=== PATIENT | female | born 2000 | race Caucasian/White ===

== ENCOUNTER 2023-02-10 11:00 | Inpatient (IN) ==
[2023-02-10] MEDS ORDERED: LACTATED RINGER'S 1,000 ML IV PRN ×2 (12:32→13:58)
[2023-02-10] MEDS ORDERED: METHADONE ORAL SOLN 2 MG/ML PO ONE (13:30)
[2023-02-10 13:37] LABS: Amphetamines+Metham, Urine Neg (Neg); Barbiturates, Urine Neg (Neg); Benzodiazepine, Urine Neg (Neg); Cocaine, Urine Neg (Neg); MDMA (Ecstacy), Urine Neg (Neg); Methadone, Urine Pos (Neg); Opiate, Urine Neg (Neg); Phencyclidine, Urine Neg (Neg)
[2023-02-10] MEDS ORDERED: OXYTOCIN 30 UNITS/500 ML BAG IV PRN ×3 (13:58→22:35)
[2023-02-10] MEDS ORDERED: LIDOCAINE 1% LOCAL 20 ML VIAL INFIL PRN (13:58)
[2023-02-10] MEDS ORDERED: VANCOMYCIN HCL 1,000 MG in SODIUM CHLORIDE 0.9% 250 ML IV STA (14:01)
[2023-02-10 14:52] LABS: Hematocrit (blood only) 33.2 % (37.0-47.0); Hemoglobin 10.5 g/dl (12.0-16.0); Mean Corpuscular Hemoglobin 25.7 pg (25.0-34.0); Mean Corpuscular Hgb Conc 31.6 g/dL (32.0-36.0); Mean Corpuscular Volume 81.2 fL (80.0-100.0); Mean Platelet Volume 11.1 fL (9.4-12.4); Platelet Count 283 K/uL (130-400); RDW Coefficient of Variation 25.8 % (11.5-14.5); RDW Standard Deviation 72.8 fL (36.4-46.3); Red Blood Count 4.09 M/uL (4.20-5.40)
--- NOTE | 2023-02-10 16:47 | History & Physical Report ---
Date of Service February 10, 2023 Assessment & Plan (1) premature rupture of membranes (PPROM) delivered, current hospi talization: Plan: Pt is 36+ weeks s/p hx of drug use on Methadone Present to L&D for Methadone this Am- New to area Reviewed chart and spoke to hospital for records transfer + ROM, meconium Bedside sono: Vt 3cm on exam A/P Admit GBS prophylaxis Anticipate VD Admission and Anticipated Discharge Date Admission Date: February 10, 2023 History of Present Illness Primary Care Provider: NO PCP Allergies Allergy/AdvReac Type Severity Reaction Status Date / Time cephalexin [From Keflex] Allergy Swelling Verified 02/09/23 19:25 of Lip/Tongue/Throat influenza virus vaccine ts Allergy Rash Verified 02/09/23 19:56 [id number] (36 mos,up) [From Fluarix] Penicillins Allergy Swelling Verified 02/09/23 19:25 of Lip/Tongue/Throat Home Medications Medication Instructions Recorded Confirmed Type methadone 120 mg PO DAILY 02/09/23 02/10/23 History prenat.vits,vipin,[id number] 1 tab PO DAILY 02/09/23 02/10/23 History Patient History Medical History (Updated 02/10/23 @ 16:43 by Miller Meeks MD) Anemia Cellulitis history of lower extremities Chronic hepatitis C Hx of substance abuse Social History Smoking Status: Former smoker Smoking End Date: 11/29/22; Hx Alcohol Use: No Hx Substance Use: Yes Last Used Substance Other:: 12/31/22 Substance Use Type Other:: "fentanyl and tranquilizers" started using 6 years ago. On methadone December Preferred Language: [place] Assistant Sales Director Required: No Beliefs That Will Affect Care: None marital status: Single Current Living Situation: Family and Significant Other Current Living Situation Comment: lives with fob and fob's father Assistive Devices: None Results & Data Vital Signs (Past 12 Hours) Vital Signs Temp Pulse Resp BP Pulse Ox 02/10/23 12:44 36.9 C 12 02/10/23 16:37 98 02/10/23 16:37 107 H 02/10/23 16:32 97 02/10/23 16:32 113 H 02/10/23 16:27 98 02/10/23 16:27 83 02/10/23 16:22 98 02/10/23 16:22 100 H 02/10/23 16:17 97 02/10/23 16:17 94 H 02/10/23 16:12 97 02/10/23 16:12 92 H 02/10/23 16:07 97 02/10/23 16:07 99 H 02/10/23 16:02 97 02/10/23 16:02 111 H 02/10/23 15:57 99 02/10/23 15:57 92 H 02/10/23 15:52 98 02/10/23 15:52 102 H 02/10/23 15:47 97 02/10/23 15:47 92 H 02/10/23 15:42 97 02/10/23 15:42 98 H 02/10/23 15:37 96 02/10/23 15:37 91 H 02/10/23 15:32 98 02/10/23 15:32 102 H 02/10/23 15:27 98 02/10/23 15:27 105 H 02/10/23 15:22 98 02/10/23 15:22 100 H 02/10/23 15:17 96 02/10/23 15:17 96 H 02/10/23 15:12 96 02/10/23 15:12 108 H 02/10/23 15:07 97 02/10/23 15:07 108 H 02/10/23 15:02 97 02/10/23 15:02 109 H 02/10/23 14:57 97 02/10/23 14:57 110 H 02/10/23 14:52 98 02/10/23 14:52 120 H 02/10/23 14:47 98 02/10/23 14:47 106 H 02/10/23 14:42 98 02/10/23 14:42 117 H 02/10/23 14:37 98 02/10/23 14:37 123 H 02/10/23 14:38 117 H 02/10/23 14:38 137/90 02/10/23 14:32 97 02/10/23 14:32 108 H 02/10/23 14:27 97 02/10/23 14:27 109 H 02/10/23 14:22 98 02/10/23 14:22 127 H 02/10/23 14:17 98 02/10/23 14:17 98 H 02/10/23 14:12 99 02/10/23 14:12 108 H 02/10/23 14:07 99 02/10/23 14:07 110 H 02/10/23 13:59 100 02/10/23 13:59 108 H 02/10/23 13:54 100 02/10/23 13:54 91 H 02/10/23 13:49 100 02/10/23 13:49 82 02/10/23 13:44 99 02/10/23 13:44 93 H 02/10/23 13:39 100 02/10/23 13:39 85 02/10/23 13:34 100 02/10/23 13:34 92 H 02/10/23 13:29 98 02/10/23 13:29 95 H 02/10/23 13:24 100 02/10/23 13:24 83 02/10/23 13:19 99 02/10/23 13:19 86 02/10/23 13:14 100 02/10/23 13:14 81 02/10/23 13:09 98 02/10/23 13:09 82 02/10/23 13:04 99 02/10/23 13:04 104 H 02/10/23 12:59 99 02/10/23 12:59 96 H 02/10/23 12:54 100 02/10/23 12:54 95 H 02/10/23 12:49 100 02/10/23 12:49 106 H 02/10/23 12:44 100 02/10/23 12:44 98 H 02/10/23 12:39 100 02/10/23 12:39 104 H 02/10/23 12:27 96 H 02/10/23 12:27 124/88 02/10/23 12:17 87 02/10/23 12:17 112/70 02/10/23 12:07 88 02/10/23 12:07 113/68 02/10/23 11:57 99 H 02/10/23 11:57 119/80 02/10/23 11:47 100 H 02/10/23 11:47 119/79 02/10/23 11:37 107 H 02/10/23 11:37 116/77 02/10/23 11:27 117 H 02/10/23 11:27 121/75 02/10/23 11:16 36.9 C 99 H 18 136/93 Code Status & VTE Plan VTE Prophylaxis Plan VTE Prophylaxis will be ordered: No
[2023-02-10] MEDS ORDERED: ePHEDrine sulfate 50 MG/ML AMP ONE (17:43)
[2023-02-10] MEDS ORDERED: fentaNYL citrate PF 100 MCG/2 ML VIAL ONE (17:43)
[2023-02-10] MEDS ORDERED: SODIUM CHLORIDE 0.9% PF INJ 10 ML VIAL ONE (17:43)
[2023-02-10] MEDS ORDERED: LIDOCAINE 2%/EPINEPHRINE 1:200,000 20 ML PF ONE (17:43)
[2023-02-10] MEDS ORDERED: BUPIVACAINE 0.25% PF 30 ML VIAL ONE (17:43)
[2023-02-10] MEDS ORDERED: fentaNYL 2MCG/ML ROPIVACAINE 1.25MG/ML 100 ML BAG EPI ONE (17:44)
[2023-02-10] MEDS ORDERED: ePHEDrine sulfate 50 MG/ML AMP IV PRN (17:51)
[2023-02-10] MEDS ORDERED: diphenhydrAMINE 50 MG/ML VIAL IV PRN (17:51)
[2023-02-10] MEDS ORDERED: fentaNYL 2MCG/ML ROPIVACAINE 1.25MG/ML 100 ML BAG EPI PRN (17:51)
[2023-02-10] MEDS ORDERED: NALOXONE HCL 0.4 MG/1 ML VIAL/CARP IV PRN (17:51)
[2023-02-10] MEDS ORDERED: NALBUPHINE HCL INJ 10 MG/ML AMP IV PRN (17:51)
[2023-02-10] MEDS ORDERED: NALOXONE HCL 1 MG in SODIUM CHLORIDE 0.9% 1000ML 1,000 ML IV PRN (17:51)
[2023-02-10] MEDS ORDERED: ONDANSETRON INJ 2 MG/ML 2 ML VIAL IV PRN (17:51)
--- NOTE | 2023-02-10 17:54 | Anesthesiology Consultation ---
Date of Service February 10, 2023 Assessment & Plan Chart Review Chart Review: Acceptable Risk for Labor Epidural Consults Requested none ASA ASA3 Proposed Anesthesia Anesthesia Type: Labor Epidural Risk / Benefits Reviewed With: PT / POA / Parent / Guardian, Accepts Plan and Informed Consent Obtained History Height/Weight Height: 4 ft 11 in Weight: 49.033 kg Allergies Allergy/AdvReac Type Severity Reaction Status Date / Time cephalexin [From Keflex] Allergy Swelling Verified 02/09/23 19:25 of Lip/Tongue/Throat influenza virus vaccine ts Allergy Rash Verified 02/09/23 19:56 [id number] (36 mos,up) [From Fluarix] Penicillins Allergy Swelling Verified 02/09/23 19:25 of Lip/Tongue/Throat Medications Home Medications Medication Instructions Recorded Confirmed Last Taken methadone 120 mg PO DAILY 02/09/23 02/10/23 02/09/23 10:00 prenat.vits,vipin,[id number] 1 tab PO DAILY 02/09/23 02/10/23 02/09/23 Active Medications Generic Name Dose Route Start Last Admin Trade Name Freq PRN Reason Stop Dose Admin Lactated Ringer's 1,000 mls @ 125 mls/hr 02/10/23 12:32 02/10/23 17:22 Lr IV 03/12/23 12:31 999 mls/hr .Q8H PRN Infusion L&D Protocol Protocol Oxytocin 30 units in 500 mls @ 2 mls/hr 02/10/23 14:00 02/10/23 17:22 Pitocin IV 02/12/23 13:59 0 units/hr .Q24H PRN 0 mls/hr Labor Induction/Augmentation Titration Protocol 0.12 UNITS/HR Past Medical History Medical History Anemia Cellulitis history of lower extremities Chronic hepatitis C Hx of substance abuse Exercise / Class Metabolic Activity II 4-5 Yardwork/Stairs/Walk up hill Past Anesthesia History No Hx of Anesthesia Complications and No Family Hx of Anesthesia Complications History of PONV No Hx of PONV and No Hx of Motion Sickness Social History Smoking Status: Former smoker Smoking End Date: 11/29/22 Hx Alcohol Use: No Hx Substance Use: Yes substance use type: tranquilizers and IV drugs Substance Use Type Other:: "fentanyl and tranquilizers" started using 6 years ago. On methadone December Last Used Substance Other:: 12/31/22 Physical Exam Vital Signs Last Vital Signs Temp 98.4 F 02/10/23 12:44 Pulse 81 02/10/23 17:42 Resp 12 02/10/23 12:44 BP 117/68 02/10/23 17:20 Pulse Ox 100 02/10/23 17:42 ENMT Mouth: no dentition abnormality Thyromental Distance: > or= 3.5 Finger Breadths Mallampati Class: II Neck normal visual inspection Respiratory normal respiratory effort Auscultation: lungs clear to auscultation bilaterally Cardiovascular Rate/Rhythm: regular rate and regular rhythm Testing Laboratory Results 02/10/23 14:36
[2023-02-10] MEDS ORDERED: BETAMETH SOD PHOS/ACETATE IA 6 MG/ML IM STA (19:23)
[2023-02-10] MEDS ORDERED: NURSING L&D Epidural Breakthrough Pain Update ONE (21:59)
[2023-02-10] MEDS ORDERED: HYDROCORTISONE ACETATE 25 MG SUPP PR PRN (22:35)
[2023-02-10] MEDS ORDERED: miSOPROStoL 200 MCG TAB PR ONE (22:35)
[2023-02-10] MEDS ORDERED: ACETAMINOPHEN 325 MG TAB PO PRN (22:35)
[2023-02-10] MEDS ORDERED: DIPHTHERIA/TETANUS/PERTUSSIS 0.5mL SYR/VIAL (Age 7+yrs) IM ONE (22:35)
[2023-02-10] MEDS ORDERED: BENZOCAINE 20% AER SPR 82.5 GM CAN EXT PRN (22:35)
[2023-02-10] MEDS ORDERED: TERBUTALINE SULFATE 1 MG/ML VIAL ONE (23:10)
[2023-02-10] MEDS: IBUPROFEN 600 MG TAB PO PRN (23:14)
--- NOTE | 2023-02-10 23:19 | Delivery Summary ---
DATE OF SERVICE: 02/10/2023 DELIVERY NOTE: The patient delivered a live female in left occiput anterior presentation. Th ere was no nuchal cord. Infant was delivered and placed on mother's abdomen. Delayed cord clamp was performed. Cord blood and cord gases were obtained. Placenta was spontaneously delivered. Inspect ion of the placenta showed a meconium stained placenta. Placenta was sent to pathology for pathologi vipin analysis. Inspection of the perineum showed no laceration or tears. Estimated blood loss 450 mL . There was good hemostasis. The patient is stable in the recovery. Infant's weight and Apgars are i n the pediatric record. Job ID: [id number]
[2023-02-11] MEDS ORDERED: VANCOMYCIN HCL 1,000 MG in SODIUM CHLORIDE 0.9% 250 ML IV PRN (00:58)
[2023-02-11] MEDS: IBUPROFEN 600 MG TAB PO PRN ×4 (04:25→23:27)
[2023-02-11 06:45] LABS: Hematocrit (blood only) 31.7 % (37.0-47.0); Hemoglobin 10.1 g/dl (12.0-16.0); Mean Corpuscular Hemoglobin 25.4 pg (25.0-34.0); Mean Corpuscular Hgb Conc 31.9 g/dL (32.0-36.0); Mean Corpuscular Volume 79.8 fL (80.0-100.0); Mean Platelet Volume 11.8 fL (9.4-12.4); Platelet Count 301 K/uL (130-400); RDW Coefficient of Variation 25.2 % (11.5-14.5); RDW Standard Deviation 71.1 fL (36.4-46.3); Red Blood Count 3.97 M/uL (4.20-5.40)
[2023-02-11] MEDS: PRENATAL VITAMIN 1 TAB PO SCH (08:27)
[2023-02-11] MEDS: DOCUSATE SODIUM 100 MG CAP PO SCH ×2 (08:27→20:36)
--- NOTE | 2023-02-11 09:42 | Obstetrical Progress Note ---
Date of Service February 11, 2023 Assessment & Plan (1) Normal course: PPD #1 Pt on Methadone doing well otherwise CYS involved labile BP's- CBC and CPM ordered (2) High risk due to maternal drug abuse: Subjective Ambulation: ambulating normally Voiding: no voiding problems Passing Gas:: Yes Diet Tolerance:: regular diet Lochia:: Small Feeding Type:: breast feeding Review of Systems All systems reviewed & are unremarkable except as noted in HPI & below Physical Exam Constitutional WD/WN, vitals as above well developed and well nourished Eyes PERRL, conjunctivae normal, anicteric sclerae Neck trachea midline, no thyromegaly Respiratory normal respiratory effort, lungs clear to auscultation Auscultation: no crackles, no rales and no wheezes Cardiovascular RRR, no murmur, no edema Gastrointestinal (Abdomen) normal bowel sounds, soft, nontender, no hepatosplenomegaly Uterus is below umbilicus Musculoskeletal no cyanosis or clubbing, extremities motor strength 5/5 Skin no rashes, warm and dry Neurologic patellar DTR's 2+ bilat, sensation intact Psychiatric A+Ox3, euthymic affect Genitourinary normal external appearance Results & Data Vital Signs (Past 12 Hours) Vital Signs Temp Pulse Pulse Resp BP BP Pulse Ox 02/11/23 08:55 36.6 C 16 135/95 02/11/23 08:25 37 C 63 16 163/93 H 02/11/23 04:05 36.9 C 78 16 136/87 98 02/11/23 00:50 37.3 C 82 16 163/102 H 99 02/11/23 00:30 36.9 C 18 02/10/23 23:15 16 02/10/23 23:00 18 02/11/23 00:00 16 02/10/23 23:30 90 16 97 02/10/23 22:45 16 02/10/23 22:30 16 02/11/23 00:32 93 H 98 02/11/23 00:30 81 151/94 H 02/11/23 00:27 86 98 02/11/23 00:22 91 H 98 02/11/23 00:17 81 97 02/11/23 00:15 83 143/93 H 02/11/23 00:12 89 99 02/11/23 00:07 93 H 98 02/11/23 00:02 82 97 02/11/23 00:00 86 146/94 H 02/10/23 23:57 98 02/10/23 23:57 90 02/10/23 23:52 99 02/10/23 23:52 89 02/10/23 23:47 99 02/10/23 23:47 98 H 02/10/23 23:45 77 02/10/23 23:45 148/95 H 02/10/23 23:42 99 02/10/23 23:42 80 02/10/23 23:37 98 02/10/23 23:38 91 02/10/23 23:37 84 02/10/23 23:38 86 02/10/23 23:32 97 02/10/23 23:32 90 02/10/23 23:31 83 02/10/23 23:31 149/91 H 02/10/23 23:27 97 02/10/23 23:27 85 02/10/23 23:22 100 02/10/23 23:22 79 02/10/23 23:17 99 02/10/23 23:17 86 02/10/23 23:15 83 02/10/23 23:15 162/102 H 02/10/23 23:14 77 02/10/23 23:14 153/97 H 02/10/23 23:12 100 02/10/23 23:12 88 02/10/23 23:07 100 02/10/23 23:07 83 02/10/23 23:06 80 02/10/23 23:06 150/102 H 02/10/23 23:02 99 02/10/23 23:02 89 02/10/23 23:00 83 02/10/23 23:00 149/100 H 02/10/23 22:57 100 02/10/23 22:57 86 02/10/23 22:52 98 02/10/23 22:52 91 H 02/10/23 22:47 99 02/10/23 22:47 92 H 02/10/23 22:46 90 02/10/23 22:46 148/93 H 02/10/23 22:45 96 H 02/10/23 22:45 153/105 H 02/10/23 22:42 97 02/10/23 22:42 87 02/10/23 22:37 98 02/10/23 22:37 85 02/10/23 22:32 99 02/10/23 22:32 92 H 02/10/23 22:30 99 H 02/10/23 22:30 146/99 H 02/10/23 22:27 98 02/10/23 22:27 98 H 02/10/23 22:22 98 02/10/23 22:22 93 H 02/10/23 22:17 100 02/10/23 22:17 120 H 02/10/23 22:12 100 02/10/23 22:12 108 H 02/10/23 22:07 98 02/10/23 22:07 81 02/10/23 22:00 20 02/10/23 22:00 20 02/10/23 22:04 82 02/10/23 22:04 157/84 H 02/10/23 22:02 97 02/10/23 22:02 84 02/10/23 21:57 99 02/10/23 21:57 85 02/10/23 21:52 99 02/10/23 21:52 87 02/10/23 21:47 100 02/10/23 21:47 88 02/10/23 21:46 81 02/10/23 21:46 166/91 H 02/10/23 21:42 100 02/10/23 21:42 91 H 02/10/23 21:41 77 02/10/23 21:41 139/91 02/10/23 21:38 82 02/10/23 21:38 134/88 O2 Del Method 02/11/23 08:55 02/11/23 08:25 Room Air 02/11/23 04:05 Room Air 02/11/23 00:50 Room Air 02/11/23 00:30 02/10/23 23:15 02/10/23 23:00 02/11/23 00:00 02/10/23 23:30 02/10/23 22:45 02/10/23 22:30 02/11/23 00:32 02/11/23 00:30 02/11/23 00:27 02/11/23 00:22 02/11/23 00:17 02/11/23 00:15 02/11/23 00:12 02/11/23 00:07 02/11/23 00:02 02/11/23 00:00 02/10/23 23:57 02/10/23 23:57 02/10/23 23:52 02/10/23 23:52 02/10/23 23:47 02/10/23 23:47 02/10/23 23:45 02/10/23 23:45 02/10/23 23:42 02/10/23 23:42 02/10/23 23:37 02/10/23 23:38 02/10/23 23:37 02/10/23 23:38 02/10/23 23:32 02/10/23 23:32 02/10/23 23:31 02/10/23 23:31 02/10/23 23:27 02/10/23 23:27 02/10/23 23:22 02/10/23 23:22 02/10/23 23:17 02/10/23 23:17 02/10/23 23:15 02/10/23 23:15 02/10/23 23:14 02/10/23 23:14 02/10/23 23:12 02/10/23 23:12 02/10/23 23:07 02/10/23 23:07 02/10/23 23:06 02/10/23 23:06 02/10/23 23:02 02/10/23 23:02 02/10/23 23:00 02/10/23 23:00 02/10/23 22:57 02/10/23 22:57 02/10/23 22:52 02/10/23 22:52 02/10/23 22:47 02/10/23 22:47 02/10/23 22:46 02/10/23 22:46 02/10/23 22:45 02/10/23 22:45 02/10/23 22:42 02/10/23 22:42 02/10/23 22:37 02/10/23 22:37 02/10/23 22:32 02/10/23 22:32 02/10/23 22:30 02/10/23 22:30 02/10/23 22:27 02/10/23 22:27 02/10/23 22:22 02/10/23 22:22 02/10/23 22:17 02/10/23 22:17 02/10/23 22:12 02/10/23 22:12 02/10/23 22:07 02/10/23 22:07 02/10/23 22:00 02/10/23 22:00 02/10/23 22:04 02/10/23 22:04 02/10/23 22:02 02/10/23 22:02 02/10/23 21:57 02/10/23 21:57 02/10/23 21:52 02/10/23 21:52 02/10/23 21:47 02/10/23 21:47 02/10/23 21:46 02/10/23 21:46 02/10/23 21:42 02/10/23 21:42 02/10/23 21:41 02/10/23 21:41 02/10/23 21:38 02/10/23 21:38
[2023-02-11 09:53] LABS: Alanine Aminotransferase 13 U/L (7-52); Albumin Globulin Ratio 0.8 (0.9-2); Alkaline Phosphatase 152 U/L (34-104); Anion Gap 7 (3-11); Aspartate Aminotransferase 18 U/L (13-39); BUN Creatinine Ratio 11.1 (10-20); Bilirubin,Total 0.3 mg/dl (0.2-1.0); Blood Urea Nitrogen 6 mg/dl (6-23); Calcium 8.5 mg/dl (8.6-10.3); Carbon Dioxide 24 mmol/L (21-32); Chloride 104 mmol/L (98-107); Creatinine Clr Calc Pharmacy 109.6 ml/min; Est GFR (African American) > 150.0 ml/min; Est GFR (Non-African American) 132.1 ml/min; Globulin 3.7 gm/dl (2.5-4.0); Glucose 96 mg/dl (70-99(Fasting)); Sodium 135 mmol/L (136-145); Total Protein 6.7 gm/dl (6.0-8.3)
--- NOTE | 2023-02-11 10:08 | Anesthesia Procedure Note ---
Date of Service February 11, 2023 Anesthesia Post Epidural Note Vital Signs Vital Signs: Temp Pulse Resp BP Pulse Ox O2 Del Method 97.9 F 63 16 135/95 98 Room Air 02/11/23 08:55 02/11/23 08:25 02/11/23 08:55 02/11/23 08:55 02/11/23 04:05 02/11/23 08:25 Pain Intensity Bilateral Lower Abdomen: Pain Intensity: 6 Notes Mental Status: alert / awake / arousable and participated in evaluation Nausea / Vomiting: adequately controlled Pain: adequately controlled Airway Patency, RR, SpO2: stable & adequate BP & HR: stable & adequate Hydration State: stable & adequate Neuraxial Anesthesia: was administered and sensory block is resolving Anesthetic Complications: no major complications apparent and Pt Satisfied with anesthetic care Epidural: Removed without complications and With tip intact
[2023-02-11] MEDS ORDERED: METHADONE ORAL SOLN 2 MG/ML PO ONE (11:30)
[2023-02-11] MEDS ORDERED: bisacodyL 5 MG TABEC PO SCH (20:00)
[2023-02-12 06:53] LABS: Hematocrit (blood only) 30.2 % (37.0-47.0); Hemoglobin 9.8 g/dl (12.0-16.0)
[2023-02-12] MEDS: PRENATAL VITAMIN 1 TAB PO SCH (08:26)
[2023-02-12] MEDS: DOCUSATE SODIUM 100 MG CAP PO SCH ×2 (08:26→21:00)
[2023-02-12] MEDS: IBUPROFEN 600 MG TAB PO PRN ×3 (08:26→18:40)
[2023-02-12] MEDS ORDERED: PATIENT'S OWN CONTROLLED MED 1 PO SCH (09:30)
[2023-02-12] MEDS: LABETALOL HCL 100 MG TAB PO SCH ×2 (09:48→21:07)
[2023-02-12] MEDS: METHADONE ORAL SOLN 2 MG/ML PO SCH (09:49)
--- NOTE | 2023-02-12 10:32 | Obstetrical Progress Note ---
Date of Service February 12, 2023 Subjective Ambulation: ambulating normally Voiding: no voiding problems Passing Gas:: Yes Diet Tolerance:: regular diet Lochia:: Small Feeding Type:: bottle feeding Current Pain Level(1-10): 0 doing well Physical Exam Constitutional WD/WN, vitals as above BP is still not in good control Labetalol started Patient on Methadone Gastrointestinal (Abdomen) Inspection/Auscultation: abdomen normal to inspection Musculoskeletal Extremities: extremities normal to inspection Skin no rashes, warm and dry Neurologic patellar DTR's 2+ bilat, sensation intact Psychiatric A+Ox3, euthymic affect Results & Data Vital Signs (Past 12 Hours) Vital Signs Temp Pulse Resp BP Pulse Ox O2 Del Method 02/12/23 07:50 36.6 C 60 16 151/99 H 97 Room Air 02/11/23 23:24 36.6 C 75 16 133/86 Room Air Laboratory Results 02/10/23 02/10/23 02/10/23 12:56 14:36 14:36 WBC 12.40 H RBC 4.09 L Hgb 10.5 L Hct 33.2 L MCV 81.2 MCH 25.7 MCHC 31.6 L RDW Std Deviation 72.8 H RDW Coeff of Arcelia 25.8 H Plt Count 283 MPV 11.1 Sodium Potassium Chloride Carbon Dioxide Anion Gap BUN Creatinine Est Cr Clr Drug Dosing Est GFR ( Amer) Est GFR (Non-Af Amer) BUN/Creatinine Ratio Glucose Calcium Total Bilirubin AST ALT Alkaline Phosphatase Total Protein Albumin Globulin Albumin/Globulin Ratio Urine Opiates Screen Neg Ur Methadone, Qual Pos H Urine Barbiturates Neg Ur Phencyclidine (PCP) Neg U Amphetamin/Meth Scrn Neg MDMA (Ecstasy) Screen Neg U Benzodiazepines Scrn Neg Ur Cocaine Metabolite Neg U Marijuana (THC) Screen Neg SARS-CoV-2, RNA, NAAT Blood Type O Positive Antibody Screen NEGATIVE 02/10/23 02/11/23 02/11/23 Unknown 06:08 09:23 WBC 13.50 H RBC 3.97 L Hgb 10.1 L Hct 31.7 L MCV 79.8 L MCH 25.4 MCHC 31.9 L RDW Std Deviation 71.1 H RDW Coeff of Arcelia 25.2 H Plt Count 301 MPV 11.8 Sodium 135 L Potassium 4.0 Chloride 104 Carbon Dioxide 24 Anion Gap 7 BUN 6 Creatinine 0.54 L Est Cr Clr Drug Dosing 109.6 Est GFR ( Amer) > 150.0 Est GFR (Non-Af Amer) 132.1 BUN/Creatinine Ratio 11.1 Glucose 96 Calcium 8.5 L Total Bilirubin 0.3 AST 18 ALT 13 Alkaline Phosphatase 152 H Total Protein 6.7 Albumin 3.0 L Globulin 3.7 Albumin/Globulin Ratio 0.8 L Urine Opiates Screen Ur Methadone, Qual Urine Barbiturates Ur Phencyclidine (PCP) U Amphetamin/Meth Scrn MDMA (Ecstasy) Screen U Benzodiazepines Scrn Ur Cocaine Metabolite U Marijuana (THC) Screen SARS-CoV-2, RNA, NAAT NEGATIVE Blood Type Antibody Screen 02/12/23 06:23 WBC RBC Hgb 9.8 L Hct 30.2 L MCV MCH MCHC RDW Std Deviation RDW Coeff of Arcelia Plt Count MPV Sodium Potassium Chloride Carbon Dioxide Anion Gap BUN Creatinine Est Cr Clr Drug Dosing Est GFR ( Amer) Est GFR (Non-Af Amer) BUN/Creatinine Ratio Glucose Calcium Total Bilirubin AST ALT Alkaline Phosphatase Total Protein Albumin Globulin Albumin/Globulin Ratio Urine Opiates Screen Ur Methadone, Qual Urine Barbiturates Ur Phencyclidine (PCP) U Amphetamin/Meth Scrn MDMA (Ecstasy) Screen U Benzodiazepines Scrn Ur Cocaine Metabolite U Marijuana (THC) Screen SARS-CoV-2, RNA, NAAT Blood Type Antibody Screen
[2023-02-12] MEDS ORDERED: bisacodyL 10 MG SUPP PR PRN (22:35)
[2023-02-13] MEDS: IBUPROFEN 600 MG TAB PO PRN ×4 (00:02→16:40)
[2023-02-13] MEDS: DOCUSATE SODIUM 100 MG CAP PO SCH (08:50)
[2023-02-13] MEDS: LABETALOL HCL 100 MG TAB PO SCH (08:58)
[2023-02-13] MEDS: PRENATAL VITAMIN 1 TAB PO SCH (08:59)
[2023-02-13] MEDS: METHADONE ORAL SOLN 2 MG/ML PO SCH (08:59)
--- NOTE | 2023-02-13 10:00 | Obstetrical Progress Note ---
Date of Service February 13, 2023 Assessment & Plan (1) hypertension: PPD #3 Hx of drug use on methadone PP hypertension on labetalol- pt's controlled with labetalol Pt waiting for CYS for discharge Subjective Ambulation: ambulating normally Voiding: no voiding problems Passing Gas:: Yes Diet Tolerance:: regular diet Lochia:: Small Feeding Type:: breast feeding Review of Systems All systems reviewed & are unremarkable except as noted in HPI & below Physical Exam Constitutional WD/WN, vitals as above well developed and well nourished Eyes PERRL, conjunctivae normal, anicteric sclerae Neck trachea midline, no thyromegaly Respiratory normal respiratory effort, lungs clear to auscultation Auscultation: no crackles, no rales and no wheezes Cardiovascular RRR, no murmur, no edema Gastrointestinal (Abdomen) normal bowel sounds, soft, nontender, no hepatosplenomegaly Uterus is below umbilicus Musculoskeletal no cyanosis or clubbing, extremities motor strength 5/5 Skin no rashes, warm and dry Neurologic patellar DTR's 2+ bilat, sensation intact Psychiatric A+Ox3, euthymic affect Genitourinary normal external appearance Results & Data Vital Signs (Past 12 Hours) Vital Signs Temp Pulse Resp BP Pulse Ox O2 Del Method 02/13/23 00:50 36.8 C 72 18 114/65 98 Room Air
[2023-02-14 12:02] LABS: Methadone, Ur Metabolite 4340 ng/mL (<100)
== END 2023-02-13 17:58 | disposition home or self-care (01) | DRG 806 ==
LOC: OPB 11:00 → 4S1 11:02 → 4E2 02-11 00:40